=== PATIENT | female | born 1985 | race Caucasian/White ===

== ENCOUNTER 2018-04-08 12:07 | Emergency (ER) | payer OTHER ==
[2018-04-08] VITALS (10 sets, daily range): BP systolic 125–135; BP diastolic 69–77; PULSE 93–113
[~2018-04-08 12:07] MED LIST: MACR100C PO
[2018-04-08] MEDS ORDERED: ACETAMINOPHEN 325 MG TAB PO ONE (13:00)
--- NOTE | 2018-04-08 13:04 | PD ---
HPI Chief Complaint elevated BP Date Seen: Apr 08, 2018 Time Seen: 12:56 Travel History International Travel<30 Days: No Contact w/Intl Traveler<30Days: No Known Affected Area: No History of Present Illness HPI Pt is a 33y/o @ 38.3wks. She has PNC with Blanka Ulloa and baby is up for adoption. She was sent over b/c she had elevated BPs yesterday in clinic. She does not recall how high it was. She was advised to come to triage but waited until today. Pt reports mild ANDERS since yesterday. She took tylenol once with some improvement but states she doesn't like taking things so she hasn't taking any further. Reports "high blood pressure" with each . Thinks one had preE. She denies ever being on meds for BP and denies that she has cHTN. No LOF, VB, ctx. +FM. Weeks Gestation: 38 Para: 3 : 4 History Past Medical History Medical History: Denies Significant Hx Obstetric History Obstetric History x3 history of elevated BP, ?preE Past Surgical History Surgical History: No Previous Surgery Family History Family History: Negative Social History Alcohol Use: No Tobacco Use: No Substance Abuse: No Allergies-Medications (Allergen,Severity, Reaction): Coded Allergies: diatrizoate meglumine (Unverified Allergy, Severe, Swelling, 06/09/17) gadobenic acid (Unverified Allergy, Severe, Swelling, 06/09/17) gadodiamide (Unverified Allergy, Severe, Swelling, 06/09/17) gadoteridol (Unverified Allergy, Severe, Swelling, 06/09/17) iodixanol (Unverified Allergy, Severe, Swelling, 06/09/17) iohexol (Unverified Allergy, Severe, Swelling, 06/09/17) *MDRO Multi-Drug Resistant Organism (Verified Allergy, Unknown, 01/10/16) 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 Home Meds Active Scripts Nitrofurantoin Monohyd Macro (Macrobid) 100 Mg Cap, 100 MG PO BID, #10 CAP Prov:Ciaran Jane MD 01/10/16 Nitrofurantoin Monohyd Macro (Macrobid) 100 Mg Cap, 100 MG PO BID for 5 Days, CAP Prov:Kvng Malik MD 12/25/15 Review of Systems Except as stated in HPI: all other systems reviewed are Neg Physical Exam Narrative General: well developed, well nourished, no acute distress HEENT: normocephalic atraumatic, extraocular movements intact, neck supple Abdomen: soft, gravid, nontender, nondistended Uterus: fundus term Extremities: full range of motion Skin: normal coloration, no rashes, no suspicious skin lesions noted Neurologic: cranial nerves 2-12 grossly intact, normal muscle tone, normal gait Psychiatric: normal mood and affect, appropriate FHTs: 140s, +accels, no decels, moderate variability, reactive [place]: quiet Cvx: Data Data Vital Signs Reviewed: Yes Orders Orders Vital Signs (Adult) .ON ADMISSION (04/08/18 12:54) ^ Labor Status (04/08/18 12:54) ^ Non Stress Test (04/08/18 12:54) Cbc No Diff, Includes Plts (04/08/18 12:54) Comprehensive Metabolic Panel (04/08/18 12:54) Uric Acid (04/08/18 12:54) Group B Beta Strep Scrn (Gbs) (04/08/18 12:54) Ceftriaxone Inj (Rocephin Inj) (04/08/18 14:00) Acetaminophen (Tylenol) (04/08/18 13:00) Drug Screen, Random Urine (04/08/18 12:54) MDM Plan 33y/o @ 38.3wks with elevated BP. -- cHTN vs gHTN vs preE (small cuff on forearm readings 140-150/70-80) -- PIH labs ordered -- UA with evidence of UTI so P:C not useful; 2g rocephin IV ordered -- cycle BPs -- change cuff to appropriate size; if any elevated BPs, pt meets criteria for delivery Austin Lua MD Apr 08, 2018 13:04
[2018-04-08 13:47] LABS: HEMATOCRIT 35.8 % (35.0-46.0); HEMOGLOBIN 11.9 GM/DL (11.6-15.3); MEAN CELL VOLUME 83.8 FL (80.0-100.0); MEAN CORPUSCULAR HEMOGLOBIN 27.9 PG (27.0-34.0); MEAN CORPUSCULAR HGB CONC 33.3 % (32.0-36.0); MEAN PLATELET VOLUME 10.5 FL (7.0-11.0); PLATELET COUNT 169 TH/MM3 (150-450); RED BLOOD COUNT 4.27 MIL/MM3 (4.00-5.30); RED CELL DISTRIBUTION WIDTH 14.9 % (11.6-17.2); WHITE BLOOD COUNT 11.9 TH/MM3 (4.0-11.0)
[2018-04-08] MEDS ORDERED: cefTRIAXone INJ 2,000 MG in SODIUM CHLORIDE 0.9% INJ 100 ML IV ONE (14:00)
[2018-04-08 14:07] LABS: ALBUMIN 2.2 GM/DL (3.4-5.0); AST (GOT) 12 U/L (15-37); BICARBONATE 20.7 MEQ/L (21.0-32.0); BLOOD UREA NITROGEN 8 MG/DL (7-18); CALCIUM 8.7 MG/DL (8.5-10.1); CHLORIDE 107 MEQ/L (98-107); CREATININE 0.64 MG/DL (0.50-1.00); GLOMERULAR FILTRATION RATE 108 ML/MIN (>89); GLUCOSE,RANDOM 118 MG/DL (74-106); SODIUM (NA) 140 MEQ/L (136-145)
[2018-04-08 14:11] LABS: ALKALINE PHOSPHATASE 127 U/L (45-117); ALT (GPT) 13 U/L (10-53); TOTAL BILIRUBIN ADULT 0.2 MG/DL (0.2-1.0); TOTAL PROTEIN 6.4 GM/DL (6.4-8.2)
--- NOTE | 2018-04-08 14:38 | PD ---
HPI Travel History International Travel<30 Days: No Contact w/Intl Traveler<30Days: No Known Affected Area: No History of Present Illness HPI Pt is a 33y/o @ 38.3wks. She has PNC with Blankaandrea Ulloa and baby is up for adoption. She was sent over b/c she had elevated BPs yesterday in clinic. She does not recall how high it was. She was advised to come to triage but waited until today. Pt reports mild ANDERS since yesterday. She took tylenol once with some improvement but states she doesn't like taking things so she hasn't taking any further. Reports "high blood pressure" with each . Thinks one had preE. She denies ever being on meds for BP and denies that she has cHTN. No LOF, VB, ctx. +FM. Allergies-Medications (Allergen,Severity, Reaction): Coded Allergies: diatrizoate meglumine (Unverified Allergy, Severe, Swelling, 06/09/17) gadobenic acid (Unverified Allergy, Severe, Swelling, 06/09/17) gadodiamide (Unverified Allergy, Severe, Swelling, 06/09/17) gadoteridol (Unverified Allergy, Severe, Swelling, 06/09/17) iodixanol (Unverified Allergy, Severe, Swelling, 06/09/17) iohexol (Unverified Allergy, Severe, Swelling, 06/09/17) *MDRO Multi-Drug Resistant Organism (Verified Allergy, Unknown, 01/10/16) MRSA 2014 Acinetobacter baumannii 2014 Home Meds Active Scripts Nitrofurantoin Monohyd Macro (Macrobid) 100 Mg Cap, 100 MG PO BID, #10 CAP Prov:Ciaran Jane MD 01/10/16 Nitrofurantoin Monohyd Macro (Macrobid) 100 Mg Cap, 100 MG PO BID for 5 Days, CAP Prov:Kvng Malik MD 12/25/15 Physical Exam Vital Signs Date Time Temp Pulse Resp B/P (MAP) Pulse Ox O2 Delivery O2 Flow Rate FiO2 04/08/18 14:15 93 133/75 (94) 04/08/18 13:46 132/69 (90) 04/08/18 13:46 94 04/08/18 13:31 132/74 (93) 04/08/18 13:31 93 04/08/18 13:16 105 135/77 (96) 04/08/18 13:15 113 04/08/18 13:10 108 04/08/18 13:05 110 04/08/18 13:01 107 125/69 (87) 04/08/18 13:00 104 04/08/18 12:55 108 Narrative GENERAL: Well-nourished, well-developed patient. SKIN: Warm and dry. HEAD: Normocephalic and atraumatic. EYES: No scleral icterus. No injection or drainage. ENT: No nasal drainage noted. Mucous membranes pink. Airway patent. NECK: Supple, trachea midline. No JVD. CARDIOVASCULAR: Regular rate and rhythm without murmurs, gallops, or rubs. RESPIRATORY: Breath sounds equal bilaterally. No accessory muscle use. BREASTS: Bilateral exam showed no masses , no retractions, no nipple discharge. ABDOMEN/GI: Abdomen soft, non-tender, bowel sounds present, no rebound, no guarding Gravid to [-] weeks size Fundal Height: [-] GENITOURINARY: External Genitalia: intact and normal in appearance BUS glands: [-] Cervix: [-] Dilatation: [-] Effacement: [-] Station: [-] Presentation: [-] Membranes: [intact or ruptured] Uterine Contractions: [-] FHT's: Category: [-] Baseline: [-] Reactive: [-] Variability: [-] Decels: [-] EXTREMITIES: No cyanosis or edema. BACK: Nontender without obvious deformity. No CVA tenderness. NEUROLOGICAL: Awake and alert. Motor and sensory grossly within normal limits. Five out of 5 muscle strength in all muscle groups. Normal speech. Data Data Orders Orders Vital Signs (Adult) .ON ADMISSION (04/08/18 12:54) ^ Labor Status (04/08/18 12:54) ^ Non Stress Test (04/08/18 12:54) Cbc No Diff, Includes Plts (04/08/18 12:54) Comprehensive Metabolic Panel (04/08/18 12:54) Uric Acid (04/08/18 12:54) Group B Beta Strep Scrn (Gbs) (04/08/18 12:54) Ceftriaxone Inj (Rocephin Inj) (04/08/18 14:00) Acetaminophen (Tylenol) (04/08/18 13:00) Drug Screen, Random Urine (04/08/18 12:54) Ed Discharge Order (04/08/18 14:17) Labs Laboratory Tests Test 04/08/18 12:30 04/08/18 13:00 Urine Opiates Screen NEG Urine Barbiturates Screen NEG Urine Amphetamines Screen NEG Urine Benzodiazepines Screen NEG Urine Cocaine Screen POS Urine Cannabinoids Screen NEG White Blood Count 11.9 Red Blood Count 4.27 Hemoglobin 11.9 Hematocrit 35.8 Mean Corpuscular Volume 83.8 Mean Corpuscular Hemoglobin 27.9 Mean Corpuscular Hemoglobin Concent 33.3 Red Cell Distribution Width 14.9 Platelet Count 169 Mean Platelet Volume 10.5 Blood Urea Nitrogen 8 Creatinine 0.64 Random Glucose 118 Total Protein 6.4 Albumin 2.2 Calcium Level 8.7 Uric Acid 5.3 Alkaline Phosphatase 127 Aspartate Amino Transf (AST/SGOT) 12 Alanine Aminotransferase (ALT/SGPT) 13 Total Bilirubin 0.2 Sodium Level 140 Potassium Level 3.7 Chloride Level 107 Carbon Dioxide Level 20.7 Anion Gap 12 Estimat Glomerular Filtration Rate 108 Date/Time Source Procedure Growth Status 04/08/18 13:05 Genital Genital Region Group B Streptococcus Screen Pending Received MDM Diagnosis Diagnosis: Primary Impression: 38 weeks gestation of Additional Impressions: Elevated blood pressure affecting in third trimester, antepartum Cocaine use complicating Patient Instructions: General Instructions Departure Forms: Tests/Procedures Austin Lua MD Apr 08, 2018 14:38
== END 2018-04-08 14:40 | disposition home or self-care (01) ==
LOC: HOBED 12:07
DX: O26.893 Other specified pregnancy related conditions, third trimester (principal); R03.0 Elevated blood-pressure reading, without diagnosis of hypertension; F14.90 Cocaine use, unspecified, uncomplicated; R51 Headache; Z79.899 Other long term (current) drug therapy; Z3A.38 38 weeks gestation of pregnancy
CPT/HCPCS: 59025; 80053; 80307; 84550; 85027; 87081; 96365; 99284; J0696

== ENCOUNTER 2018-04-20 05:36 | Inpatient (IN) | payer OTHER ==
[2018-04-20] VITALS (63 sets, daily range): BP systolic 63–210; BP diastolic 33–154; PULSE 88–215; RESP 19–22; TEMP 98–101.7; O2SAT 96–100
[2018-04-20] MEDS ORDERED: LACTATED RINGER'S 1000 ML INJ 1,000 ML IV SCH (06:22)
[2018-04-20] MEDS ORDERED: PREN29TA PO (06:22)
[2018-04-20] MEDS ORDERED: LACTATED RINGER'S 1000 ML INJ 1,000 ML IV PRN (06:22)
--- NOTE | 2018-04-20 06:22 | HHI.HP ---
HPI Chief Complaint Contractions and leaking fluid Date Seen: Apr 20, 2018 Time Seen: 06:15 Travel History International Travel<30 Days: No Contact w/Intl Traveler<30Days: No Known Affected Area: No History of Present Illness HPI 33-year-old white female at 40 weeks patient Blanka Ashraf who presents complaining contractions and leaking fluid. Her amnisure was negative, heart tracing is reactive she is tino every 3 minutes Weeks Gestation: 40 Para: 3 : 4 History Past Medical History Narrative Medical Obesity Obstetric History Obstetric History 3 vaginal deliveries term she had preeclampsia with last baby Social History Narrative Social History Has a known cocaine use history Tobacco Use: Yes Substance Abuse: Yes Allergies-Medications (Allergen,Severity, Reaction): Coded Allergies: diatrizoate meglumine (Unverified Allergy, Severe, Swelling, 06/09/17) gadobenic acid (Unverified Allergy, Severe, Swelling, 06/09/17) gadodiamide (Unverified Allergy, Severe, Swelling, 06/09/17) gadoteridol (Unverified Allergy, Severe, Swelling, 06/09/17) iodixanol (Unverified Allergy, Severe, Swelling, 06/09/17) iohexol (Unverified Allergy, Severe, Swelling, 06/09/17) *MDRO Multi-Drug Resistant Organism (Verified Allergy, Unknown, 01/10/16) MRSA 2014 Acinetobacter baumannii 2014 Home Meds Active Scripts Nitrofurantoin Monohyd Macro (Macrobid) 100 Mg Cap, 100 MG PO BID, #10 CAP Prov:Ciaran Jane MD 01/10/16 Nitrofurantoin Monohyd Macro (Macrobid) 100 Mg Cap, 100 MG PO BID for 5 Days, CAP Prov:Kvng Malik MD 12/25/15 Review of Systems General / Constitutional: No: Fever, Weight Gain, Chills, Other Eyes: No: Diploplia, Blurred Vision, Visual changes, Pain, Photophobia HENT: No: Headaches, Vertigo, Lightheadedness Cardiovascular: No: Irregular Rhythm, Chest Pain or Discomfort, Palpitations, Tachycardia, Syncope, Varicosities, Edema, Cyanosis Respiratory: No: Cough, Short of Breath, Other Gastrointestinal: Abdominal Pain, No: Nausea, Vomiting, Diarrhea Genitourinary: No: Decreased Urinary Output, Oliguria Musculoskeletal: No: Limited ROM, Weakness, Cramping, Edema, Pain Skin: No Rash, No Itching, No Dryness, No Lumps, No Change in Pigmentation, No Change in Nails, No Alopecia, No Lesions Neurologic: No: Weakness, Dizziness, Syncope, Focal Abnormalities, Coordination Problem, Headache, Slurred Speech, Seizures Psychiatric: No: Depression, Suicidal Ideations, Homicidal Ideation Endocrine: No: Heat Intolerance, Cold Intolerance, Polydipsia, Polyuria, Other Physical Exam Narrative GENERAL: Well-nourished, obese patient. SKIN: Warm and dry. A lot of tattoos HEAD: Normocephalic and atraumatic. EYES: No scleral icterus. No injection or drainage. ENT: No nasal drainage noted. Mucous membranes pink. Airway patent. NECK: Supple, trachea midline. No JVD. CARDIOVASCULAR: Regular rate and rhythm without murmurs, gallops, or rubs. RESPIRATORY: Breath sounds equal bilaterally. No accessory muscle use. BREASTS: Bilateral exam showed no masses , no retractions, no nipple discharge. ABDOMEN/GI: Abdomen soft, obese,, -tender, bowel sounds present, no rebound, no guarding Gravid to [40-] weeks size Fundal Height: [-40] GENITOURINARY: External Genitalia: intact and normal in appearance BUS glands: [-] Cervix: [mid-] Dilatation: [6-] Effacement: [-90] Station: [-1] Presentation: [vtx-] Membranes: [intact BBOW] Uterine Contractions: [q 3 min-] FHT's: Category: [1-] Baseline: [-133] Reactive: [R-] Variability: [-mod] Decels: [-0] EXTREMITIES: No cyanosis or edema. BACK: Nontender without obvious deformity. No CVA tenderness. NEUROLOGICAL: Awake and alert. Motor and sensory grossly within normal limits. Five out of 5 muscle strength in all muscle groups. Normal speech. Caprini VTE Risk Assessment Caprini VTE Risk Assessment: No/Low Risk (score <= 1) Caprini Risk Assessment Model Point Value = 1 Point Value = 2 Point Value = 3 Point Value = 5 Age 41-60 Minor surgery BMI > 25 kg/m2 Swollen legs Varicose veins or History of unexplained or recurrent spontaneous Oral contraceptives or hormone replacement Sepsis (< 1 month) Serious lung disease, including pneumonia (< 1 month) Abnormal pulmonary function Acute myocardial infarction Congestive heart failure (< 1 month) History of inflammatory bowel disease Medical patient at bed rest Age 61-74 Arthroscopic surgery Major open surgery (> 45 min) Laparoscopic surgery (> 45 min) Malignancy Confined to bed (> 72 hours) Immobilizing plaster cast Central venous access Age >= 75 History of VTE Family history of VTE Factor V Leiden Prothrombin [id number] Lupus anticoagulant Anticardiolipin antibodies Elevated serum homocysteine Heparin-induced thrombocytopenia Other congenital or acquired thrombophilia Stroke (< 1 month) Elective arthroplasty Hip, pelvis, or leg fracture Acute spinal cord injury (< 1 month) Prophylaxis Regimen Total Risk Factor Score Risk Level Prophylaxis Regimen 0-1 Low Early ambulation 2 Moderate Order ONE of the following: *Sequential Compression Device (SCD) *Heparin 5000 units SQ BID 3-4 Higher Order ONE of the following medications: *Heparin 5000 units SQ TID *Enoxaparin/Lovenox 40 mg SQ daily (WT < 150 kg, CrCl > 30 mL/min) *Enoxaparin/Lovenox 30 mg SQ daily (WT < 150 kg, CrCl > 10-29 mL/min) *Enoxaparin/Lovenox 30 mg SQ BID (WT < 150 kg, CrCl > 30 mL/min) AND/OR *Sequential Compression Device (SCD) 5 or more Highest Order ONE of the following medications: *Heparin 5000 units SQ TID (Preferred with Epidurals) *Enoxaparin/Lovenox 40 mg SQ daily (WT < 150 kg, CrCl > 30 mL/min) *Enoxaparin/Lovenox 30 mg SQ daily (WT < 150 kg, CrCl > 10-29 mL/min) *Enoxaparin/Lovenox 30 mg SQ BID (WT < 150 kg, CrCl > 30 mL/min) AND *Sequential Compression Device (SCD) Data Data Group B Strep: Negative Assessment/Plan Assessment and Plan Impression-term intrauterine multiparous in active labor, cervix 6/90/ -1, blood pressures initially elevated and his history of hypertension with this on her last visit with Blanka Ulloa Plan--admit to labor and delivery, monitor mother/ fetus, check PIH lab, urinalysis, anticipate vaginal delivery shortly Rey Salvador II, MD Apr 20, 2018 06:22
[2018-04-20] MEDS ORDERED: MINERAL OIL 10 ML VIAL TOPICAL PRN (06:30)
[2018-04-20] MEDS ORDERED: SODIUM CHLORID 0.9% 500 ML INJ 500 ML IV PRN (06:30)
[2018-04-20] MEDS ORDERED: LIDOCAINE HCL 1% 50 ML VIAL INFIL PRN (06:30)
[2018-04-20] MEDS ORDERED: LIDOCAINE HCL 1% 50 ML VIAL I-DERMAL PRN (06:30)
[2018-04-20] MEDS ORDERED: OXYTOCIN 30 UNITS-500ML PREMIX 500 ML IV ONE ×2 (06:30→08:45)
[2018-04-20] MEDS ORDERED: CITRIC ACID-SODIUM CITRATE LIQ 30 ML UDC PO SCH (06:30)
[2018-04-20] MEDS ORDERED: SODIUM CHLOR 0.9% 1000 ML INJ 1,000 ML IV PRN (06:42)
[2018-04-20 06:49] LABS: AUTOMATED NEUTROPHIL # 10.5 TH/MM3 (1.8-7.7); BASOPHIL # 0.1 TH/MM3 (0-0.2); BASOPHIL % 0.6 % (0.0-2.0); EOSINOPHIL # 0.1 TH/MM3 (0-0.4); EOSINOPHIL % 0.7 % (0.0-4.0); HEMATOCRIT 35.4 % (35.0-46.0); HEMOGLOBIN 11.7 GM/DL (11.6-15.3); LYMPH % 17.7 % (9.0-44.0); LYMPHOCYTE # 2.5 TH/MM3 (1.0-4.8); MEAN CELL VOLUME 84.5 FL (80.0-100.0); MEAN CORPUSCULAR HEMOGLOBIN 27.8 PG (27.0-34.0); MEAN CORPUSCULAR HGB CONC 32.9 % (32.0-36.0); MEAN PLATELET VOLUME 10.1 FL (7.0-11.0); MONOCYTE # 0.8 TH/MM3 (0-0.9); PLATELET COUNT 169 TH/MM3 (150-450); RED BLOOD COUNT 4.19 MIL/MM3 (4.00-5.30); RED CELL DISTRIBUTION WIDTH 15.3 % (11.6-17.2)
[2018-04-20] MEDS ORDERED: fentaNYL 2MCG-BUPIV 0.125% INJ 150 ML EPIDURAL ONE ×2 (07:10→07:11)
[2018-04-20 07:13] LABS: ALBUMIN 2.3 GM/DL (3.4-5.0); AST (GOT) 10 U/L (15-37); BICARBONATE 23.1 MEQ/L (21.0-32.0); BLOOD UREA NITROGEN 8 MG/DL (7-18); CALCIUM 8.4 MG/DL (8.5-10.1); CHLORIDE 108 MEQ/L (98-107); CREATININE 0.52 MG/DL (0.50-1.00); GLOMERULAR FILTRATION RATE 137 ML/MIN (>89); GLUCOSE,RANDOM 111 MG/DL (74-106); SODIUM (NA) 140 MEQ/L (136-145)
[2018-04-20 07:20] LABS: ALKALINE PHOSPHATASE 134 U/L (45-117); ALT (GPT) 10 U/L (10-53); TOTAL BILIRUBIN ADULT 0.2 MG/DL (0.2-1.0); TOTAL PROTEIN 6.4 GM/DL (6.4-8.2)
[2018-04-20 07:26] LABS: BACTERIA, URINE FEW /hpf; BILIRUBIN, URINE NEG (NEG); BLOOD, URINE MOD (NEG); GLUCOSE,URINE NEG (NEG); KETONE, URINE NEG (NEG); NITRITE,URINE NEG (NEG); SQUAMOUS EPITHELIAL CELL URINE 18 /hpf (0-5); URINE COLOR YELLOW (YELLW/STRAW); URINE LEUKOCYTE ESTERASE LARGE (NEG); WHITE BLOOD CELL CLUMPS OCC
[2018-04-20] MEDS ORDERED: LABETALOL HCL 100 MG/20 ML VIAL ONE (07:40)
[2018-04-20] MEDS: LABETALOL HCL 100 MG/20 ML VIAL IV PUSH PRN ×2 (07:43→08:14)
[2018-04-20] MEDS ORDERED: LABETALOL HCL 100 MG/20 ML VIAL IV PUSH PRN ×4 (07:45→12:45)
[2018-04-20] MEDS ORDERED: LIDOCAINE HCL 1.5% PF 20 ML AMP ONE (08:06)
[2018-04-20] MEDS ORDERED: LIDOCAINE HCL 1% PF 30 ML VIAL ONE (08:07)
--- NOTE | 2018-04-20 08:25 | PD.OB.DELI ---
Weeks gestation: 40 Pt started active labor?: Yes Medical induction of labor?: No Artificial rupture of membrane: Yes Anesthesia: Epidural Episiotomy: None Vaginal Delivery: Normal Presentation: Occiput anterior Nuchal Cord: None Delayed cord clamping (45 sec): Yes Infant: Female Delivery date: Apr 20, 2018 Delivery time: 07:59 One Minute : 9 Five Minute : 9 Weight: 3170 Placenta: Spontaneous delivery, Intact, 3 vessel cord Laceration: Perineal laceration, 2 deg Repair: Chromic running (2-0 chromic) Estimated blood loss: 250cc Additional Information Supervised by Shasha Rivers MD R3 Apr 20, 2018 08:25
[2018-04-20] MEDS ORDERED: OXYTOCIN 30 UNITS-500ML PREMIX 500 ML IV SCH (08:30)
[2018-04-20] MEDS ORDERED: WITCH HAZEL 50%/GLYCERIN 12.5% 40 PAD JAR TOPICAL PRN (08:30)
[2018-04-20] MEDS ORDERED: ALUMINUM/MAGNESIUM/SIMETH 30 ML CUP PO PRN (08:30)
[2018-04-20] MEDS ORDERED: BENZOCAINE 20% TOPICAL SPRAY 60 ML CAN TOPICAL PRN (08:30)
[2018-04-20] MEDS ORDERED: SODIUM CHLORIDE 0.9% FLUSH 10 ML FLUSH IV FLUSH PRN (08:30)
[2018-04-20] MEDS ORDERED: ONDANSETRON ODT 4 MG TAB PO PRN (08:30)
[2018-04-20] MEDS ORDERED: oxyCODONE/ACETAMINOPHEN 5 MG/325 MG TAB PO PRN (08:30)
[2018-04-20] MEDS ORDERED: ACETAMINOPHEN 325 MG TAB PO PRN (08:30)
[2018-04-20] MEDS ORDERED: DOCUSATE SODIUM 50 MG/SENNA 8.6 MG TAB PO PRN (08:30)
[2018-04-20] MEDS ORDERED: MISOPROSTOL 200 MCG TAB ONE ×2 (08:43→09:42)
[2018-04-20] MEDS ORDERED: MISOPROSTOL 200 MCG TAB PO ONE (08:45)
[2018-04-20] MEDS: SODIUM CHLORIDE 0.9% FLUSH 10 ML FLUSH IV FLUSH SCH (09:00)
[2018-04-20] MEDS ORDERED: TRANEXAMIC ACID INJ 1,000 MG/10 ML AMP ONE (09:42)
[2018-04-20] MEDS ORDERED: CARBOPROST TROMETHAMINE 250 MCG/ML VIAL ONE ×2 (09:43)
[2018-04-20] MEDS ORDERED: TRANEXAMIC ACID INJ 1,000 MG in SODIUM CHLORIDE 0.9% INJ 100 ML IV SCH (09:45)
[2018-04-20] MEDS ORDERED: SODIUM CHLOR 0.9% 250 ML INJ 250 ML IV ONE ×2 (09:45→10:00)
[2018-04-20] MEDS ORDERED: CARBOPROST TROMETHAMINE 250 MCG/ML VIAL IM ONE (09:45)
[2018-04-20] MEDS ORDERED: GENTAMICIN INJ 80 MG in SODIUM CHLORIDE 0.9% INJ 100 ML IV SCH (10:00)
[2018-04-20] MEDS ORDERED: ONDANSETRON HCL 4 MG/2 ML VIAL ONE (10:19)
[2018-04-20] MEDS ORDERED: GENTAMICIN INJ 120 MG in SODIUM CHLORIDE 0.9% INJ 100 ML IV ONE (11:00)
[2018-04-20] MEDS: AMPICILLIN INJ 2,000 MG in SODIUM CHLORIDE 0.9% INJ 100 ML IV SCH ×3 (11:06→22:39)
[2018-04-20 11:23] LABS: AUTOMATED NEUTROPHIL # 15.2 TH/MM3 (1.8-7.7); BASOPHIL # 0.1 TH/MM3 (0-0.2); BASOPHIL % 0.4 % (0.0-2.0); EOSINOPHIL % 0.2 % (0.0-4.0); HEMATOCRIT 35.6 % (35.0-46.0); HEMOGLOBIN 11.5 GM/DL (11.6-15.3); LYMPH % 9.6 % (9.0-44.0); LYMPHOCYTE # 1.7 TH/MM3 (1.0-4.8); MEAN CELL VOLUME 84.7 FL (80.0-100.0); MEAN CORPUSCULAR HEMOGLOBIN 27.5 PG (27.0-34.0); MEAN CORPUSCULAR HGB CONC 32.4 % (32.0-36.0); MEAN PLATELET VOLUME 10.5 FL (7.0-11.0); MONO % 3.8 % (0.0-8.0); MONOCYTE # 0.7 TH/MM3 (0-0.9); PLATELET COUNT 158 TH/MM3 (150-450); RED CELL DISTRIBUTION WIDTH 15.5 % (11.6-17.2); WHITE BLOOD COUNT 17.7 TH/MM3 (4.0-11.0)
[2018-04-20 11:27] LABS: INTERNATIONAL NORMALIZED RATIO 0.9 RATIO; PROTHROMBIN TIME - PATIENT 9.5 SEC (9.8-11.6)
[2018-04-20 11:35] LABS: BILIRUBIN, URINE NEG (NEG); BLOOD, URINE SMALL (NEG); GLUCOSE,URINE NEG (NEG); KETONE, URINE NEG (NEG); NITRITE,URINE NEG (NEG); SQUAMOUS EPITHELIAL CELL URINE <1 /hpf (0-5); URINE COLOR YELLOW (YELLW/STRAW); URINE LEUKOCYTE ESTERASE NEG (NEG)
[2018-04-20] MEDS: GENTAMICIN INJ 80 MG in SODIUM CHLORIDE 0.9% INJ 100 ML IV SCH (11:41)
--- NOTE | 2018-04-20 11:44 | HHI.OB ---
Subjective Remarks Patient now comfortable without chest pain, shortness of breath, fever, chills. (Shasha Almaraz MD R3) Remarks pt gives hx of cough and cold for last few days. also c/o of hot and cold spells. denies dizziness or lightheadedness. (Rashawn Alvarez MD) Objective Vitals/I&O Vital Signs Date Time Temp Pulse Resp B/P (MAP) Pulse Ox O2 Delivery O2 Flow Rate FiO2 04/20/18 11:17 113 152/90 (110) 04/20/18 11:02 112 134/76 (95) 04/20/18 11:00 113 04/20/18 10:55 114 04/20/18 10:50 112 04/20/18 10:45 113 04/20/18 10:42 122 106/39 (61) 04/20/18 10:40 113 04/20/18 10:38 111 158/79 (105) 04/20/18 10:35 117 04/20/18 10:32 117 133/105 (114) 04/20/18 10:27 116 154/80 (104) 04/20/18 10:22 122 165/87 (113) 04/20/18 10:17 102 146/89 (108) 04/20/18 10:12 112 162/79 (106) 04/20/18 10:07 117 184/82 (116) 04/20/18 10:03 117 183/88 (119) 04/20/18 10:01 120 187/61 (103) 04/20/18 09:47 88/51 (63) 04/20/18 09:39 63/33 (43) 04/20/18 09:39 116 04/20/18 09:35 84/55 (65) 04/20/18 09:35 215 04/20/18 09:34 101.7 04/20/18 09:32 110 88/70 (76) 04/20/18 09:27 108 210/154 (172) 04/20/18 09:16 108 149/82 (104) 04/20/18 09:15 98.1 04/20/18 09:01 98 134/77 (96) 04/20/18 08:56 101 118/56 (76) 04/20/18 08:51 98 144/68 (93) 04/20/18 08:46 98 139/105 (116) 04/20/18 08:42 155 142/77 (98) 04/20/18 08:36 108 143/101 (115) 04/20/18 08:33 101 139/72 (94) 04/20/18 08:26 110 148/73 (98) 04/20/18 08:21 105 136/91 (106) 04/20/18 08:19 97 137/76 (96) 04/20/18 08:16 104 165/80 (108) 04/20/18 08:11 102 161/103 (122) 04/20/18 08:07 109 143/105 (118) 04/20/18 08:05 107 98 04/20/18 07:55 98 99 04/20/18 07:52 104 144/93 (110) 04/20/18 07:50 97 04/20/18 07:50 99 04/20/18 07:46 102 144/107 (119) 04/20/18 07:45 108 04/20/18 07:45 96 04/20/18 07:42 110 126/62 (83) 04/20/18 07:39 113 187/85 (119) 04/20/18 07:36 121 180/104 (129) 04/20/18 07:31 99 158/68 (98) 04/20/18 07:25 118 04/20/18 07:25 123 168/108 (128) 99 04/20/18 07:21 109 166/88 (114) 04/20/18 07:20 104 100 04/20/18 07:18 106 155/117 (130) 04/20/18 06:16 101 132/56 (81) Objective Remarks GENERAL: Well-nourished, well-developed patient. CARDIOVASCULAR: Regular rate and rhythm without murmurs, gallops, or rubs. RESPIRATORY: Breath sounds rhonchorus without wheezes. No accessory muscle use. ABDOMEN/GI: Abdomen soft, non-tender. Fundus: Initially boggy, with approximately 300cc clot evacuated from uterus. On repeat examination, fundus firm, non-tender. GENITOURINARY: Moderate bleeding. Medications and IVs Current Medications Medications (Trade) Dose Ordered Sig/Mario Route Start Time Stop Time Status Last Admin (NS Flush) 2 ml BID IV FLUSH 04/20/18 09:00 (NS Flush) 2 ml UNSCH PRN IV FLUSH 04/20/18 08:30 Oxytocin 500 ml @ 100 mls/hr CONTINUOUS IV 04/20/18 08:30 04/20/18 13:29 04/20/18 08:45 (Tylenol) 650 mg Q4H PRN PO 04/20/18 08:30 (Motrin) 800 mg Q8H PRN PO 04/20/18 08:30 (Percocet 5-325 Mg) 1 tab Q4H PRN PO 04/20/18 08:30 (Percocet 5-325 Mg) 2 tab Q4H PRN PO 04/20/18 08:30 (Americaine 20% Top Spr) 1 spray Q4H PRN TOPICAL 04/20/18 08:30 (Tucks Pads) 1 applic QID PRN TOPICAL 04/20/18 08:30 (Raven-Colace) 2 tab Q12H PRN PO 04/20/18 08:30 (Ambien) 5 mg HS PRN PO 04/20/18 21:00 (M-M-R Ii Inj) 0.5 ml ONCE ONCE SQ 04/20/18 16:00 04/20/18 16:01 (Boostrix Inj) 0.5 ml ONCE ONCE IM 04/20/18 16:00 04/20/18 16:01 (Mag-Al Plus Susp Liq) 15 ml Q8H PRN PO 04/20/18 08:30 (Zofran Odt) 4 mg Q6H PRN PO 04/20/18 08:30 (Trandate Inj) 20 mg Q6H PRN IV PUSH 04/20/18 08:30 Future Hold 04/20/18 08:14 Tranexamic Acid 1000 mg/Sodium Chloride 110 ml @ 200 mls/hr UNSCH X1 IV 04/20/18 09:45 04/20/18 23:00 Sodium Chloride 250 ml @ 15 mls/hr ONCE ONCE IV 04/20/18 10:00 04/21/18 02:39 Ampicillin Sodium 2000 mg/Sodium Chloride 100 ml @ 400 mls/hr Q6H IV 04/20/18 10:00 Gentamicin Sulfate 80 mg/ Sodium Chloride 102 ml @ 102 mls/hr Q8H IV 04/20/18 20:00 Gentamicin Sulfate 120 mg/ Sodium Chloride 103 ml @ 103 mls/hr ONCE ONCE IV 04/20/18 11:00 04/20/18 11:59 (fentaNYL INJ) 100 mcg ONCE ONCE IV PUSH 04/20/18 11:15 04/20/18 11:16 UNV (Shasha Almaraz MD R3) Objective Remarks fundus firm at umbilicus mod lochia (Rashawn Alvarez MD) Assessment/Plan Assessment and Plan 33 year old now s/p at 40-1/7 weeks gestation. 1. hemorrhage- s/p Pitocin 30units bolus x 3, Cytotec 400mcg PO, TXA 1g IV and Hemabate IM 250mcg x 2. PRBC on hold. CBC and coags stable. Continuous monitoring, now with hemorrhage resolution. 2. Fever- Tmax up to 101.7, blood cultures obtained and ampicillin and gentamicin initiated. 3. PIH- s/p labetalol 20mg x 2 per HTN protocol during labor. Blood pressures have been labile- dropping during hemorrhage and improving with fluid bolus, now slightly elevated, continue to monitor closely. 4. Nausea and Emesis- secondary to Hemabate and Cytotec, improving with Zofran. 5. UDS positive for Cocaine. sdw Dr. Salvador and Dr. Alvarez (Shasha Almaraz MD R3) Problem List: (1) hemorrhage ICD Codes: O72.1 - Other immediate hemorrhage Plan: labs stable check CXR/urine cx/blood cx cont abx (2) Gestational hypertension ICD Codes: O13.9 - Gestational [-induced] hypertension without significant proteinuria, unspecified trimester Plan: BP not hypotensive over the last 2 hours. BP elevated over last 2 hours , will reinitiate BP protocol. (Rashawn Alvarez MD) Shasha Almaraz MD R3 Apr 20, 2018 11:44 Rashawn Alvarez MD Apr 20, 2018 12:23
[2018-04-20] MEDS ORDERED: PROMETHAZINE INJ 25 MG/ML VIAL IM PRN (12:15)
[2018-04-20 14:37] LABS: AUTOMATED NEUTROPHIL # 17.8 TH/MM3 (1.8-7.7); BASOPHIL % 0.2 % (0.0-2.0); EOSINOPHIL % 0.1 % (0.0-4.0); HEMATOCRIT 31.6 % (35.0-46.0); HEMOGLOBIN 10.7 GM/DL (11.6-15.3); LYMPH % 8.4 % (9.0-44.0); LYMPHOCYTE # 1.7 TH/MM3 (1.0-4.8); MEAN CELL VOLUME 83.6 FL (80.0-100.0); MEAN CORPUSCULAR HEMOGLOBIN 28.3 PG (27.0-34.0); MEAN CORPUSCULAR HGB CONC 33.8 % (32.0-36.0); MONO % 4.3 % (0.0-8.0); MONOCYTE # 0.9 TH/MM3 (0-0.9); PLATELET COUNT 161 TH/MM3 (150-450); RED BLOOD COUNT 3.78 MIL/MM3 (4.00-5.30); WHITE BLOOD COUNT 20.5 TH/MM3 (4.0-11.0)
[2018-04-20] MEDS: oxyCODONE/ACETAMINOPHEN 5 MG/325 MG TAB PO PRN ×2 (15:43→20:00)
[2018-04-20] MEDS ORDERED: MEASLES, MUMPS, RUBELLA VACCINE 0.5 ML VIAL SQ ONE (16:00)
[2018-04-20] MEDS ORDERED: DIPHTH/TETANUS/ACEL PERTUSSIS (BOOSTER) 0.5 ML VIAL/PFS IM ONE (16:00)
--- NOTE | 2018-04-20 16:45 | RADRPT ---
EXAM DATE: 04/20/2018 4:29 PM EDT AGE/SEX: 33 years / Female INDICATIONS: Cold like symptoms CLINICAL DATA: This is the patient's initial encounter. Patient reports that signs and symptoms have been present for 1 day and indicates a pain score of 0/10. MEDICAL/SURGICAL HISTORY: . childbirth today None. COMPARISON: [facility] – [place], CHEST SINGLE AP, 10/31/2015. . FINDINGS: PA and lateral views of the chest demonstrate a normal-sized cardiac silhouette. There is no effusion , consolidation, or pneumothorax. The bones and soft tissues demonstrate no acute abnormality. CONCLUSION: No acute cardiopulmonary abnormality is identified. Electronically signed by: North Wood MD 04/20/2018 4:43 PM EDT
[2018-04-20] MEDS ORDERED: ZOLPIDEM TARTRATE 5 MG TAB PO PRN (21:00)
[2018-04-21] MEDS: AMPICILLIN INJ 2,000 MG in SODIUM CHLORIDE 0.9% INJ 100 ML IV SCH ×4 (04:55→22:31)
[2018-04-21] MEDS: oxyCODONE/ACETAMINOPHEN 5 MG/325 MG TAB PO PRN ×5 (05:21→22:30)
--- NOTE | 2018-04-21 08:02 | HHI.OB ---
Subjective Post Day: 1 Remarks pain controlled, mod lochia, kyle po, +void/flatus. denies lightheaded/dizziness /SOB/CP Objective Vitals/I&O Vital Signs Date Time Temp Pulse Resp B/P (MAP) Pulse Ox O2 Delivery O2 Flow Rate FiO2 04/20/18 22:32 98.0 88 19 111/56 (74) 04/20/18 15:10 98.4 97 20 151/87 (108) 04/20/18 13:32 108 131/84 (100) 04/20/18 12:49 114 126/67 (86) 04/20/18 12:32 109 143/83 (103) 04/20/18 12:17 109 144/88 (106) 04/20/18 12:12 99.0 22 04/20/18 12:01 109 151/86 (107) 04/20/18 11:32 113 169/97 (121) 04/20/18 11:17 113 152/90 (110) 04/20/18 11:02 112 134/76 (95) 04/20/18 11:00 113 04/20/18 10:55 114 04/20/18 10:50 112 04/20/18 10:45 113 04/20/18 10:42 122 106/39 (61) 04/20/18 10:40 113 04/20/18 10:38 111 158/79 (105) 04/20/18 10:35 117 04/20/18 10:32 117 133/105 (114) 04/20/18 10:27 116 154/80 (104) 04/20/18 10:22 122 165/87 (113) 04/20/18 10:17 102 146/89 (108) 04/20/18 10:12 112 162/79 (106) 04/20/18 10:07 117 184/82 (116) 04/20/18 10:03 117 183/88 (119) 04/20/18 10:01 120 187/61 (103) 04/20/18 09:47 88/51 (63) 04/20/18 09:39 63/33 (43) 04/20/18 09:39 116 04/20/18 09:35 84/55 (65) 04/20/18 09:35 215 04/20/18 09:34 101.7 04/20/18 09:32 110 88/70 (76) 04/20/18 09:27 108 210/154 (172) 04/20/18 09:16 108 149/82 (104) 04/20/18 09:15 98.1 04/20/18 09:01 98 134/77 (96) 04/20/18 08:56 101 118/56 (76) 04/20/18 08:51 98 144/68 (93) 04/20/18 08:46 98 139/105 (116) 04/20/18 08:42 155 142/77 (98) 04/20/18 08:36 108 143/101 (115) 04/20/18 08:33 101 139/72 (94) 04/20/18 08:26 110 148/73 (98) 04/20/18 08:21 105 136/91 (106) 04/20/18 08:19 97 137/76 (96) 04/20/18 08:16 104 165/80 (108) 04/20/18 08:11 102 161/103 (122) 04/20/18 08:07 109 143/105 (118) 04/20/18 08:05 107 98 04/20/18 07:55 98 99 Objective Remarks fundus firm at umbilicus mod lochia Medications and IVs Current Medications Medications (Trade) Dose Ordered Sig/Mario Route Start Time Stop Time Status Last Admin (NS Flush) 2 ml BID IV FLUSH 04/20/18 09:00 (NS Flush) 2 ml UNSCH PRN IV FLUSH 04/20/18 08:30 (Tylenol) 650 mg Q4H PRN PO 04/20/18 08:30 (Motrin) 800 mg Q8H PRN PO 04/20/18 08:30 (Percocet 5-325 Mg) 1 tab Q4H PRN PO 04/20/18 08:30 (Percocet 5-325 Mg) 2 tab Q4H PRN PO 04/20/18 08:30 04/21/18 05:21 (Americaine 20% Top Spr) 1 spray Q4H PRN TOPICAL 04/20/18 08:30 (Tucks Pads) 1 applic QID PRN TOPICAL 04/20/18 08:30 (Raven-Colace) 2 tab Q12H PRN PO 04/20/18 08:30 (Ambien) 5 mg HS PRN PO 04/20/18 21:00 (Mag-Al Plus Susp Liq) 15 ml Q8H PRN PO 04/20/18 08:30 (Zofran Odt) 4 mg Q6H PRN PO 04/20/18 08:30 (Trandate Inj) 20 mg Q6H PRN IV PUSH 04/20/18 08:30 Future Hold 04/20/18 08:14 Ampicillin Sodium 2000 mg/Sodium Chloride 100 ml @ 400 mls/hr Q6H IV 04/20/18 10:00 04/21/18 04:55 Gentamicin Sulfate 80 mg/ Sodium Chloride 102 ml @ 102 mls/hr Q8H IV 04/20/18 20:00 04/20/18 11:41 (Phenergan Inj) 25 mg Q6H PRN IM 04/20/18 12:15 04/20/18 12:31 Assessment/Plan Problem List: (1) hemorrhage ICD Codes: O72.1 - Other immediate hemorrhage Plan: labs stable (2) Gestational hypertension ICD Codes: O13.9 - Gestational [-induced] hypertension without significant proteinuria, unspecified trimester Plan: BP stable without meds (3) fever, current hospitalization ICD Codes: O86.4 - Pyrexia of unknown origin following delivery Plan: afebrile overnight cont abx cultures pending Assessment and Plan Rashawn Alvarez MD Apr 21, 2018 08:02
[2018-04-21] MEDS: GENTAMICIN INJ 80 MG in SODIUM CHLORIDE 0.9% INJ 100 ML IV SCH ×3 (08:21→20:06)
--- NOTE | 2018-04-21 08:40 | HHI.OB ---
Objective Vitals/I&O Vital Signs Date Time Temp Pulse Resp B/P (MAP) Pulse Ox O2 Delivery O2 Flow Rate FiO2 04/20/18 22:32 98.0 88 19 111/56 (74) 04/20/18 15:10 98.4 97 20 151/87 (108) 04/20/18 13:32 108 131/84 (100) 04/20/18 12:49 114 126/67 (86) 04/20/18 12:32 109 143/83 (103) 04/20/18 12:17 109 144/88 (106) 04/20/18 12:12 99.0 22 04/20/18 12:01 109 151/86 (107) 04/20/18 11:32 113 169/97 (121) 04/20/18 11:17 113 152/90 (110) 04/20/18 11:02 112 134/76 (95) 04/20/18 11:00 113 04/20/18 10:55 114 04/20/18 10:50 112 04/20/18 10:45 113 04/20/18 10:42 122 106/39 (61) 04/20/18 10:40 113 04/20/18 10:38 111 158/79 (105) 04/20/18 10:35 117 04/20/18 10:32 117 133/105 (114) 04/20/18 10:27 116 154/80 (104) 04/20/18 10:22 122 165/87 (113) 04/20/18 10:17 102 146/89 (108) 04/20/18 10:12 112 162/79 (106) 04/20/18 10:07 117 184/82 (116) 04/20/18 10:03 117 183/88 (119) 04/20/18 10:01 120 187/61 (103) 04/20/18 09:47 88/51 (63) 04/20/18 09:39 63/33 (43) 04/20/18 09:39 116 04/20/18 09:35 84/55 (65) 04/20/18 09:35 215 04/20/18 09:34 101.7 04/20/18 09:32 110 88/70 (76) 04/20/18 09:27 108 210/154 (172) 04/20/18 09:16 108 149/82 (104) 04/20/18 09:15 98.1 04/20/18 09:01 98 134/77 (96) 04/20/18 08:56 101 118/56 (76) 04/20/18 08:51 98 144/68 (93) 04/20/18 08:46 98 139/105 (116) 04/20/18 08:42 155 142/77 (98) Objective Remarks fundus firm at umbilicus mod lochia Medications and IVs Current Medications Medications (Trade) Dose Ordered Sig/Mario Route Start Time Stop Time Status Last Admin (NS Flush) 2 ml BID IV FLUSH 04/20/18 09:00 (NS Flush) 2 ml UNSCH PRN IV FLUSH 04/20/18 08:30 (Tylenol) 650 mg Q4H PRN PO 04/20/18 08:30 (Motrin) 800 mg Q8H PRN PO 04/20/18 08:30 (Percocet 5-325 Mg) 1 tab Q4H PRN PO 04/20/18 08:30 (Percocet 5-325 Mg) 2 tab Q4H PRN PO 04/20/18 08:30 04/21/18 05:21 (Americaine 20% Top Spr) 1 spray Q4H PRN TOPICAL 04/20/18 08:30 (Tucks Pads) 1 applic QID PRN TOPICAL 04/20/18 08:30 (Raven-Colace) 2 tab Q12H PRN PO 04/20/18 08:30 (Ambien) 5 mg HS PRN PO 04/20/18 21:00 (Mag-Al Plus Susp Liq) 15 ml Q8H PRN PO 04/20/18 08:30 (Zofran Odt) 4 mg Q6H PRN PO 04/20/18 08:30 (Trandate Inj) 20 mg Q6H PRN IV PUSH 04/20/18 08:30 Future Hold 04/20/18 08:14 Ampicillin Sodium 2000 mg/Sodium Chloride 100 ml @ 400 mls/hr Q6H IV 04/20/18 10:00 04/21/18 04:55 Gentamicin Sulfate 80 mg/ Sodium Chloride 102 ml @ 102 mls/hr Q8H IV 04/20/18 20:00 04/21/18 08:21 (Phenergan Inj) 25 mg Q6H PRN IM 04/20/18 12:15 04/20/18 12:31 Assessment/Plan Problem List: (1) hemorrhage ICD Codes: O72.1 - Other immediate hemorrhage Plan: labs stable (2) Gestational hypertension ICD Codes: O13.9 - Gestational [-induced] hypertension without significant proteinuria, unspecified trimester Plan: BP stable without meds (3) fever, current hospitalization ICD Codes: O86.4 - Pyrexia of unknown origin following delivery Plan: afebrile overnight cont abx cultures pending Assessment and Plan Nancy Bernardo MD R2 Apr 21, 2018 08:40
[2018-04-21] MEDS ORDERED: IBUP1TAB7 PO (09:30)
[2018-04-21] MEDS ORDERED: PERI PO (09:30)
--- NOTE | 2018-04-21 09:30 | HHI.DCPOC ---
Discharge Care Plan Diagnosis: (1) Vaginal delivery (2) hemorrhage (3) fever, current hospitalization Report Symptoms to Your Doctor -Temperature above 100.5 degrees -Redness, of incision or excessive or foul smelling drainage -Unusual pain or calf pain -Increased vaginal bleeding -Painful or difficulty urinating -Feelings of extreme sadness or anxiety after 2 weeks Goals to Promote Your Health * To prevent worsening of your condition and complications * To maintain your health at the optimal level Directions to Meet Your Goals Take your medications as prescribed Follow your dietary instruction Follow activity as directed Ensure plenty of rest for recovery Drink fluids for hydration Keep your appointments as scheduled Take your immunizations and boosters as scheduled If your symptoms worsen call your PCP, if no PCP go to Urgent Care Center or Emergency Room Smoking is Dangerous to Your Health. Avoid second hand smoke Call the 24-hour crisis hotline for domestic abuse at Nancy Bernardo MD R2 Apr 21, 2018 09:30
[2018-04-21] MEDS: IBUPROFEN 800 MG TAB PO PRN ×2 (10:22→18:43)
--- NOTE | 2018-04-21 14:08 | HHI.FPPN ---
Addendum to progress note ADDENDUM Reason for addendum: Additonal documentation Additional information Resident received page that patient was asking to be discharged from the hospital because she no longer wanted to be here. She wanted to sign adoption papers which required that she be discharged from the hospital. I spoke to her with her nurse present in the room about the risks of leaving AMA including life-threatening vaginal bleeding, uterine infection, etc., as well as the risk of being financially liable for her hospital stay. In addition , DCF would have to be notified because of adoption being in the picture. The patient's nurse (Jessica) later informed me that she was able to have a much lengthier conversation with the patient and convinced her to stay until tomorrow. Her discharge will be processed early tomorrow morning to facilitate the adoption process. Nancy Bernardo MD R2 Apr 21, 2018 14:08
[2018-04-21 14:39] LABS: AUTOMATED NEUTROPHIL # 6.4 TH/MM3 (1.8-7.7); BASOPHIL % 0.4 % (0.0-2.0); EOSINOPHIL # 0.3 TH/MM3 (0-0.4); EOSINOPHIL % 2.7 % (0.0-4.0); HEMATOCRIT 26.4 % (35.0-46.0); HEMOGLOBIN 8.8 GM/DL (11.6-15.3); LYMPH % 27.1 % (9.0-44.0); LYMPHOCYTE # 2.7 TH/MM3 (1.0-4.8); MEAN CELL VOLUME 84.9 FL (80.0-100.0); MEAN CORPUSCULAR HEMOGLOBIN 28.2 PG (27.0-34.0); MEAN CORPUSCULAR HGB CONC 33.2 % (32.0-36.0); MEAN PLATELET VOLUME 9.7 FL (7.0-11.0); MONO % 5.9 % (0.0-8.0); MONOCYTE # 0.6 TH/MM3 (0-0.9); NEUT % 63.9 % (16.0-70.0); PLATELET COUNT 139 TH/MM3 (150-450); RED BLOOD COUNT 3.11 MIL/MM3 (4.00-5.30); RED CELL DISTRIBUTION WIDTH 15.5 % (11.6-17.2)
[2018-04-21 20:00] VITALS: BP 134/80; PULSE 80; RESP 18; TEMP 98
[2018-04-22] MEDS: oxyCODONE/ACETAMINOPHEN 5 MG/325 MG TAB PO PRN (03:17)
[2018-04-22] MEDS: IBUPROFEN 800 MG TAB PO PRN ×2 (03:17→08:01)
[2018-04-22] MEDS: AMPICILLIN INJ 2,000 MG in SODIUM CHLORIDE 0.9% INJ 100 ML IV SCH ×2 (04:28→10:02)
[2018-04-22] MEDS: GENTAMICIN INJ 80 MG in SODIUM CHLORIDE 0.9% INJ 100 ML IV SCH (04:28)
[2018-04-22 04:49] LABS: HEMATOCRIT 27.9 % (35.0-46.0); HEMOGLOBIN 9.2 GM/DL (11.6-15.3); MEAN CELL VOLUME 85.5 FL (80.0-100.0); MEAN CORPUSCULAR HEMOGLOBIN 28.4 PG (27.0-34.0); MEAN CORPUSCULAR HGB CONC 33.2 % (32.0-36.0); MEAN PLATELET VOLUME 9.5 FL (7.0-11.0); PLATELET COUNT 145 TH/MM3 (150-450); RED BLOOD COUNT 3.26 MIL/MM3 (4.00-5.30); RED CELL DISTRIBUTION WIDTH 15.4 % (11.6-17.2); WHITE BLOOD COUNT 9.2 TH/MM3 (4.0-11.0)
[2018-04-22 05:12] LABS: BICARBONATE 26.5 MEQ/L (21.0-32.0); CALCIUM 8.5 MG/DL (8.5-10.1); CREATININE 0.56 MG/DL (0.50-1.00)
--- NOTE | 2018-04-22 06:27 | HHI.OB ---
Subjective Post Day: 2 Remarks day # 2. AFVSS overnight. Pain well-controlled. Lochia much reduced. Denies dysuria. No breast tenderness. Appetite good. No nausea or vomiting. Positive flatus. Positive bowel movement. Ambulating well. Denies calf pain, shortness of breath, or chest pain. Otherwise, she is doing well this morning and has no other complaints. Objective Vitals/I&O Vital Signs Date Time Temp Pulse Resp B/P (MAP) Pulse Ox O2 Delivery O2 Flow Rate FiO2 04/21/18 20:00 98.0 80 18 134/80 (98) Objective Remarks GENERAL: Well-nourished, well-developed patient. CARDIOVASCULAR: Regular rate and rhythm without murmurs, gallops, or rubs. RESPIRATORY: Breath sounds equal bilaterally. No accessory muscle use. ABDOMEN/GI: Abdomen soft, non-tender. Fundus: Firm, non-tender at umbilicus. GENITOURINARY: Light to moderate bleeding. EXTREMITIES: No cyanosis or edema, non-tender, without signs of DVT. Medications and IVs Current Medications Medications (Trade) Dose Ordered Sig/Mario Route Start Time Stop Time Status Last Admin (NS Flush) 2 ml BID IV FLUSH 04/20/18 09:00 (NS Flush) 2 ml UNSCH PRN IV FLUSH 04/20/18 08:30 (Tylenol) 650 mg Q4H PRN PO 04/20/18 08:30 (Motrin) 800 mg Q8H PRN PO 04/20/18 08:30 04/22/18 03:17 (Percocet 5-325 Mg) 1 tab Q4H PRN PO 04/20/18 08:30 (Percocet 5-325 Mg) 2 tab Q4H PRN PO 04/20/18 08:30 04/22/18 03:17 (Americaine 20% Top Spr) 1 spray Q4H PRN TOPICAL 04/20/18 08:30 (Tucks Pads) 1 applic QID PRN TOPICAL 04/20/18 08:30 (Raven-Colace) 2 tab Q12H PRN PO 04/20/18 08:30 (Ambien) 5 mg HS PRN PO 04/20/18 21:00 (Mag-Al Plus Susp Liq) 15 ml Q8H PRN PO 04/20/18 08:30 (Zofran Odt) 4 mg Q6H PRN PO 04/20/18 08:30 (Trandate Inj) 20 mg Q6H PRN IV PUSH 04/20/18 08:30 Future Hold 04/20/18 08:14 Ampicillin Sodium 2000 mg/Sodium Chloride 100 ml @ 400 mls/hr Q6H IV 04/20/18 10:00 04/22/18 04:28 Gentamicin Sulfate 80 mg/ Sodium Chloride 102 ml @ 102 mls/hr Q8H IV 04/20/18 20:00 04/22/18 04:28 (Phenergan Inj) 25 mg Q6H PRN IM 04/20/18 12:15 04/20/18 12:31 Assessment/Plan Problem List: (1) hemorrhage ICD Codes: O72.1 - Other immediate hemorrhage Qualifiers: Qualified Codes: O72.1 - Other immediate hemorrhage Plan: (2) Gestational hypertension ICD Codes: O13.9 - Gestational [-induced] hypertension without significant proteinuria, unspecified trimester Plan: (3) fever, current hospitalization ICD Codes: O86.4 - Pyrexia of unknown origin following delivery Assessment and Plan 33 y/o female who is PPD#2 s/p , doing well overall 1. -Continue routine care -Motrin and Percocet PRN for pain -Pericolase PRN for constipation -Encouraged OOB. Advised pelvic rest for 6 wks -Will need a follow-up appointment within 6 wks for post- check -Re: ctrl - undecided 2. hemorrhage -Much reduced -H/H improved from 8.8/26.4 yesterday to 9.2/27.9 today 3. fever -Has remained afebrile -Completed 48 hours of ampicillin and 5 doses of gentamicin -Blood cultures show no growth in 1 day 4. Gestational Hypertension -Blood pressures have mostly been within normal range -Max systolic BP is 151 in the past [address] Yuan Discharge Planning Discharge home today. Baby is being adopted. Nancy Bernardo MD R2 Apr 22, 2018 6:27 am
[2018-04-22] MEDS: SODIUM CHLORIDE 0.9% FLUSH 10 ML FLUSH IV FLUSH SCH (08:01)
== END 2018-04-22 12:03 | disposition home or self-care (01) | DRG 774 ==
LOC: HOBED 05:36 → H2EA 06:18 → H1EA 14:59
PROVIDERS: ADMIT Obstetrics & Gynecology Maternal & Fetal Medicine; ATTEND Obstetrics & Gynecology Maternal & Fetal Medicine
PROC: 10E0XZZ Delivery of Products of Conception, External Approach (ICD-10-PCS; principal; 2018-04-20)
PROC: 0KQM0ZZ Repair Perineum Muscle, Open Approach (ICD-10-PCS; 2018-04-20)
DX: O13.4 Gestational [pregnancy-induced] hypertension without significant proteinuria, complicating childbirth (principal); O72.1 Other immediate postpartum hemorrhage; O99.324 Drug use complicating childbirth; E66.9 Obesity, unspecified; O86.4 Pyrexia of unknown origin following delivery; O99.214 Obesity complicating childbirth; F14.90 Cocaine use, unspecified, uncomplicated; O70.1 Second degree perineal laceration during delivery; R11.2 Nausea with vomiting, unspecified; O9A.23 Injury, poisoning and certain other consequences of external causes complicating the puerperium; Z37.0 Single live birth; Z3A.40 40 weeks gestation of pregnancy; Z86.14 Personal history of Methicillin resistant Staphylococcus aureus infection
CPT/HCPCS: 59025; 71046; 80048; 80053; 80307; 81001; 84112; 84550; 85025; 85027; 85610; 85730; 86850; 86900; 86901; 86920; 87040; 87086; 87641; G0481; J0290; J1580; J2405; J2550; J2590; J3010